=== PATIENT | female | born 1995 | race Caucasian/White ===

== ENCOUNTER 2017-11-13 22:19 | Outpatient (CLI) | payer OTHER | END 2017-11-14 13:40 | disposition home or self-care (01) | LOC: OBS/DEL 22:19 | DX: O26.853 Spotting complicating pregnancy, third trimester (principal) ==

== ENCOUNTER 2017-11-21 06:01 | Inpatient (IN) | payer OTHER ==
[~2017-11-21] VITALS: Ht 157.5 cm; Wt 64.0 kg
[2017-11-21] MEDS ORDERED: PRENATAL TABLE1 EAC3 PO (15:43)
== END 2017-11-23 15:52 | disposition home or self-care (01) | DRG 775 ==
LOC: LDR 06:01 → OB/GYN 06:01 → LDR 15:59 → OB/GYN 22:21
PROC: 10E0XZZ Delivery of Products of Conception, External Approach (ICD-10-PCS; principal; 2017-11-21)
PROC: 0W8NXZZ Division of Female Perineum, External Approach (ICD-10-PCS; 2017-11-21)
PROC: 10907ZC Drainage of Amniotic Fluid, Therapeutic from Products of Conception, Via Natural or Artificial Opening (ICD-10-PCS; 2017-11-21)
PROC: 4A1HXCZ Monitoring of Products of Conception, Cardiac Rate, External Approach (ICD-10-PCS; 2017-11-21)
DX: O80 Encounter for full-term uncomplicated delivery (principal); Z37.0 Single live birth; Z3A.39 39 weeks gestation of pregnancy